=== PATIENT | female | born 1985 ===

== ENCOUNTER 2021-07-14 18:35 | Observation (INO) ==
[2021-07-14] MEDS ORDERED: Buffered Lidocaine 1% SYRIN 1 ml INTRADERM ONE (19:07)
[2021-07-14] MEDS ORDERED: Lactated Ringers 1000 ml BAG 1,000 ML IV ONE (19:07)
[2021-07-14 19:35] LABS: ABS Lymphocytes 2.2 10^3/ul (1.0-4.8); ABS Monocytes 0.4 10^3/ul (0-0.8); ABS Neutrophils 8.2 10^3/ul (1.5-7.7); Eosinophil % 0.3 %; Hematocrit 32 % (35-47); Hemoglobin 11.5 g/dL (12.0-16.0); Lymphocyte % 20.1 %; Mean Corpuscular HGB Conc 35 g/dL (31-36); Mean Corpuscular Hemoglobin 32 pg (27-31); Mean Corpuscular Volume 91 fL (80-97); Mean Platelet Volume 7.6 fL (7.4-10.4); Platelet Count 295 10^3/uL (150-450); Red Blood Count 3.57 10^6 /uL (3.70-4.87); Red Cell Distribution Width 15 % (10-15); White Blood Count 10.9 10^3/uL (3.5-10.8)
[2021-07-14 19:47] LABS: Urine Appearance Cloudy; Urine Bilirubin Negative (Negative); Urine Blood Negative (Negative); Urine Color Amber; Urine Glucose Negative (Negative); Urine Ketones Trace (Negative); Urine Nitrite Positive (Negative); Urine Protein Negative (Negative); Urine Specific Gravity 1.017 (1.002-1.030); Urine Urobilinogen Positive (Negative)
[2021-07-14 19:54] VITALS: BP 118/79
[2021-07-14 19:55] LABS: Albumin 3.3 g/dL (3.2-5.2); Albumin/Globulin Ratio 1.1 (1-3); Calcium 8.9 mg/dL (8.6-10.3); Potassium 3.3 mmol/L (3.5-5.0); Total Protein 6.3 g/dL (6.4-8.9); Uric Acid 4.3 mg/dL (2.3-6.6); Urine Benzodiazepine Screen None Detected (None Detect); Urine Cannabinoids Screen Presumptive Positive (None Detect); Urine Opiates Screen None Detected (None Detect); eGFR CKD-EPI 131.6 (>60)
[2021-07-14 20:08] LABS: Urine Bacteria 1+ (Absent); Urine Red Blood Cell 3+(>10/hpf) (Absent); Urine Squamous Epithelial Cell Present (Absent); Urine White Blood Cell 3+(>20/hpf) (Absent); Urine Yeast Present (Absent)
[2021-07-14] MEDS ORDERED: cefTRIAXone 1 gm/50 mL NS BAG 1 GM/50 ML BAG IVPB SCH (22:28)
[2021-07-14] MEDS ORDERED: Potassium Chlor 20 meq TAB.ER PO ONE (22:46)
[2021-07-14] MEDS: levETIRAcetam LIQ 500 MG/5 ML UDC PO SCH (22:55)
[2021-07-14] MEDS: Lactated Ringers 1000 ml BAG 1,000 ML IV SCH (22:57)
[2021-07-15] MEDS ORDERED: Cosyntropin 0.25 MG VIAL IV ONE (06:05)
[2021-07-15] MEDS: levETIRAcetam LIQ 500 MG/5 ML UDC PO SCH (08:56)
[2021-07-15] MEDS: Lactated Ringers 1000 ml BAG 1,000 ML IV SCH ×2 (14:32)
[2021-07-15] MEDS ORDERED: Flu vaccine *QUAD* 2021-22* 0.5 ML SYRINGE IM ONE (20:00)
[2021-07-16] MEDS ORDERED: Flu vaccine *QUAD* 2021-22* 0.5 ML SYRINGE IM ONE (09:00)
[2021-07-19 13:55] LABS: Renin 1.2 ng/mL/h
== END 2021-07-15 20:25 | disposition home or self-care (01) ==
LOC: MCHOBOUT 18:35 → MCHOB 19:09 → INTOOBSV 19:09
PROVIDERS: ADMIT Obstetrics & Gynecology; ATTEND Obstetrics & Gynecology

== ENCOUNTER 2021-07-23 11:44 | Inpatient (IN) ==
[2021-07-23 12:56] LABS: Hematocrit 34 % (35-47); Hemoglobin 11.6 g/dL (12.0-16.0); Mean Corpuscular HGB Conc 34 g/dL (31-36); Mean Corpuscular Hemoglobin 31 pg (27-31); Mean Corpuscular Volume 91 fL (80-97); Mean Platelet Volume 7.2 fL (7.4-10.4); Platelet Count 277 10^3/uL (150-450); Red Blood Count 3.76 10^6 /uL (3.70-4.87); Red Cell Distribution Width 14 % (10-15); White Blood Count 9.2 10^3/uL (3.5-10.8)
[2021-07-23] MEDS ORDERED: Buffered Lidocaine 1% SYRIN 1 ml INTRADERM ONE (13:10)
[2021-07-23] MEDS ORDERED: Dinoprostone 10 MG VAG.SUPP VAGINAL ONE (13:10)
[2021-07-23] MEDS ORDERED: Lactated Ringers 1000 ml BAG 1,000 ML IV ONE (13:10)
[2021-07-23 14:34] LABS: Urine Appearance Cloudy; Urine Bilirubin Negative (Negative); Urine Blood Negative (Negative); Urine Color Yellow; Urine Glucose Negative (Negative); Urine Ketones Negative (Negative); Urine Nitrite Negative (Negative); Urine Protein Negative (Negative); Urine Specific Gravity 1.018 (1.002-1.030); Urine Urobilinogen Negative (Negative)
[2021-07-23 14:42] LABS: Urine Bacteria 1+ (Absent); Urine Red Blood Cell Trace(0-2/hpf) (Absent); Urine Squamous Epithelial Cell Present (Absent); Urine White Blood Cell Trace(0-5/hpf) (Absent)
[2021-07-23 14:52] LABS: Urine Benzodiazepine Screen None Detected (None Detect); Urine Cannabinoids Screen Presumptive Positive (None Detect); Urine Opiates Screen None Detected (None Detect)
[2021-07-23] MEDS: levETIRAcetam LIQ 500 MG/5 ML UDC PO SCH (21:20)
[2021-07-23] MEDS: Lactated Ringers 1000 ml BAG 1,000 ML IV SCH (21:34)
[2021-07-24] MEDS ORDERED: Nalbuphine 10 MG/ML 1 ML VIAL IV PRN (00:08)
[2021-07-24] MEDS ORDERED: Promethazine INJ(RESTRICTED) 25 MG/ML 1 ml VIAL IV ONE (00:09)
[2021-07-24] MEDS ORDERED: Oxytocin in LR 20 UNITS/1,000 ML BAG IVPB SCH ×2 (08:00→16:00)
[2021-07-24] MEDS ORDERED: OBEPIDURAL 250 ML EPIDURAL ONE (08:31)
[2021-07-24] MEDS: Lactated Ringers 1000 ml BAG 1,000 ML IV SCH ×2 (08:34→09:30)
[2021-07-24] MEDS ORDERED: EPHEDrine (Pressors) 50 MG/ML VIAL IV PUSH PRN ×2 (10:09)
[2021-07-24] MEDS ORDERED: Lactated Ringers 1000 ml BAG 1,000 ML IV ONE (10:09)
[2021-07-24] MEDS ORDERED: Phenylephrine 40 mcg/mL 10mL (400mcg) SYRINGE IV PUSH PRN ×2 (10:09)
[2021-07-24] MEDS ORDERED: Sodium Citrate/Citric Acid LIQ 15 ML UDC PO PRN (10:09)
[2021-07-24] MEDS: levETIRAcetam LIQ 500 MG/5 ML UDC PO SCH ×2 (10:27→21:05)
[2021-07-24] MEDS ORDERED: Lactated Ringers 1000 ml BAG 1,000 ML IV SCH ×2 (11:00→16:00)
[2021-07-24] MEDS ORDERED: Dibucaine 1% OINT 28.35 GM TUBE PR PRN (15:27)
[2021-07-24] MEDS ORDERED: Witch Hazel PAD JAR TOPICAL PRN (15:27)
[2021-07-24] MEDS ORDERED: Glycerin ADULT 2.4 gm SUPP PR PRN (15:27)
[2021-07-24] MEDS: OBEPIDURAL 250 ML EPIDURAL SCH (17:58)
[2021-07-24] MEDS ORDERED: Lidocaine 1% VIAL 10 MG/ML VIAL ONE ×2 (18:55→18:57)
[2021-07-25 06:38] LABS: ABS Basophils 0.1 10^3/ul (0-0.2); ABS Eosinophils 0.1 10^3/ul (0-0.6); ABS Lymphocytes 2.4 10^3/ul (1.0-4.8); ABS Monocytes 0.8 10^3/ul (0-0.8); ABS Neutrophils 8.2 10^3/ul (1.5-7.7); Eosinophil % 0.7 %; Hematocrit 29 % (35-47); Hemoglobin 10.1 g/dL (12.0-16.0); Lymphocyte % 20.8 %; Mean Corpuscular HGB Conc 34 g/dL (31-36); Mean Corpuscular Hemoglobin 31 pg (27-31); Mean Corpuscular Volume 91 fL (80-97); Mean Platelet Volume 7.4 fL (7.4-10.4); Platelet Count 236 10^3/uL (150-450); Red Blood Count 3.21 10^6 /uL (3.70-4.87); Red Cell Distribution Width 15 % (10-15); White Blood Count 11.5 10^3/uL (3.5-10.8)
[2021-07-25] MEDS ORDERED: Tetan/Diph/Pertus SYR(Tdap) 0.5 ML SYR(BOOSTRIX) use SYR contains LATEX IM ONE (09:00)
[2021-07-25] MEDS: levETIRAcetam LIQ 500 MG/5 ML UDC PO SCH ×2 (09:05→21:22)
[2021-07-25] MEDS: OBEPIDURAL 250 ML EPIDURAL SCH (16:40)
[2021-07-26] MEDS: levETIRAcetam LIQ 500 MG/5 ML UDC PO SCH (08:54)
[2021-07-26 10:43] VITALS: BP 110/58
[2021-07-26] MEDS ORDERED: medroxyPROGESTERone ACETATE 150 MG/ML VIAL IM ONE (13:00)
[2021-07-26] MEDS ORDERED: Tetan/Diph/Pertus SYR(Tdap) 0.5 ML SYR(BOOSTRIX) use SYR contains LATEX IM ONE (14:29)
== END 2021-07-26 15:23 | disposition home or self-care (01) | DRG 560 ==
LOC: MCHOBOUT 11:44 → MCHOB 13:04
PROVIDERS: ADMIT Obstetrics & Gynecology; ATTEND Advanced Practice Midwife